=== PATIENT | female | born 1960 | race Caucasian/White ===

== ENCOUNTER 2020-04-01 05:39 | Outpatient (RCR) | payer BC ==
[~2020-04-01] VITALS: Ht 157 cm; Wt 92.6 kg
[2020-04-01] MEDS ORDERED: ACHYD1T PO (10:30)
[2020-04-01] MEDS ORDERED: FURO20TA4 PO (10:30)
[2020-04-01] MEDS ORDERED: ELUX100T PO (10:30)
[2020-04-01] MEDS ORDERED: LORA10TA7 PO (10:30)
[2020-04-01] MEDS ORDERED: LEVO50TA6 PO (10:30)
[2020-04-01] MEDS ORDERED: ESTR2TAB PO (10:30)
[2020-04-01] MEDS ORDERED: LISI10TA2 PO (10:30)
[2020-04-01 10:33] VITALS: BP 126/82
[2020-04-01 10:59] LABS: BASOPHILS % (AUTO) 1 % (0-10); EOSINOPHILS # (AUTO) 0.2 10^3/uL (0.0-0.3); EOSINOPHILS % (AUTO) 3 % (0-10); HEMATOCRIT 41 % (35-52); HEMOGLOBIN 13.7 G/DL (11.5-16.0); LYMPHOCYTES # (AUTO) 1.5 X 10^3 (1.0-4.0); LYMPHOCYTES % (AUTO) 19 % (12-44); MEAN CORPUSCULAR HEMOGLOBIN 29 PG (25-34); MEAN CORPUSCULAR HGB CONC 34 G/DL (32-36); MEAN CORPUSCULAR VOLUME 87 FL (80-99); MEAN PLATELET VOLUME 9.4 FL (7.4-10.4); MONOCYTES # (AUTO) 0.6 X 10^3 (0.0-1.0); MONOCYTES % (AUTO) 8 % (0-12); NEUTROPHILS # (AUTO) 5.5 X 10^3 (1.8-7.8); NEUTROPHILS % (AUTO) 70 % (42-75); PLATELET COUNT 228 10^3/uL (130-400); WHITE BLOOD COUNT 7.9 10^3/uL (4.3-11.0)
[2020-04-01 11:15] LABS: BUN/CREATININE RATIO 19; CALCIUM 8.8 MG/DL (8.5-10.1); CARBON DIOXIDE 23 MMOL/L (21-32); CHLORIDE 109 MMOL/L (98-107); CREATININE SERUM 0.75 MG/DL (0.60-1.30); GFR ESTIMATED > 60; GLUCOSE 97 MG/DL (70-105); POTASSIUM 3.9 MMOL/L (3.6-5.0); SODIUM 141 MMOL/L (135-145)
--- NOTE | 2020-04-01 12:24 | Diagnostic Imaging Report ---
Clinical indication: Patient with excision left nasal lesion. No chest complaints today. Exam: Chest x-ray PA and lateral views. Comparisons: None. Findings: Lungs/pleura: Lungs are clear. There is no pneumothorax. There is no pleural effusion. Mediastinum: Unremarkable. Pulmonary vasculature: Unremarkable. Heart: Unremarkable. Bones/extrathoracic soft tissue: There are hypertrophic spurs seen throughout the thoracic and visualized upper lumbar spine. Impression: There is no radiographic evidence of acute cardiopulmonary process. Dictated by: Dictated on workstation # [id number]
== END 2020-04-01 16:00 | disposition home or self-care (01) ==
LOC: PREOP 05:39
PROVIDERS: ATTEND Otolaryngology Otolaryngology/Facial Plastic Surgery
DX: Z01.810 Encounter for preprocedural cardiovascular examination (principal); Z01.811 Encounter for preprocedural respiratory examination; Z01.812 Encounter for preprocedural laboratory examination; J34.89 Other specified disorders of nose and nasal sinuses; Z20.828 Contact with and (suspected) exposure to other viral communicable diseases; Z11.2 Encounter for screening for other bacterial diseases
CPT/HCPCS: 71046; 80048; 85025; 87081; 93005; U0002; 36415; 87635

== ENCOUNTER 2020-04-04 06:06 | Day surgery (SDC) | payer BC ==
[~2020-04-04] VITALS: Ht 157 cm; Wt 92.6 kg
[2020-04-04] VITALS (9 sets, daily range): BP systolic 109–150; BP diastolic 58–91
[~2020-04-04 06:06] MED LIST: ACHYD1T PO; ELUX100T PO; ESTR2TAB PO; FURO20TA4 PO; LEVO50TA6 PO; LISI10TA2 PO; LORA10TA7 PO
--- OUTSIDE RECORDS SUMMARY | 2020-04-04 06:11 | XMS REPORT | Continuity of Care Document ---
Author Organization Unknown Address Unknown Phone Unavailable Allergies Active Description Code Type Severity Reaction Onset Reported/Identified Relationship to Patient Clinical Status Yes No Known Drug Allergies [id number] Drug Allergy Unknown N/A 04/01/2020 Medications There is no data. Problems There is no data. Procedures There is no data. Results Test Result Range Coronavirus SARS-CoV-2 SO 2018 - 0 08:00 Coronavirus Ab [Units/volume] in Serum Negative Negative Complete blood count (CBC) with automate d white blood cell (WBC) differential - 04/01/20 10:40 Blood leukocytes automated count (number/volume) 7.9 10*3/uL 4.3-11.0 Blood erythrocytes automated count (number/volume) 4.66 10*6/uL 4.35-5.85 Venous blood hemoglobin measurement (mass/volume) 13.7 g/dL 11.5-16.0 Blood hematocrit (volume fraction) 41 % 35-52 Automated erythrocyte mean corpuscular volume 87 [ foz_us] 80-99 Automated erythrocyte mean corpuscular h emoglobin (mass per erythrocyte) 29 pg 25-34 Automated erythrocyte mean corpuscular h emoglobin concentration measurement (mass/volume) 34 g/dL 32-36 Automated erythrocyte distribution width ratio 14. 0 % 10.0- 14.5 Automated blood platelet count (count/volume) 228 10*3/uL 130-400 Automated blood platelet mean volume measurement 9.4 [foz_us] 7.4-10.4 Automated blood neutrophils/100 leukocytes 70 % 42-75 Automated blood lymphocytes/100 leukocytes 19 % 12-44 Blood monocytes/100 leukocytes 8 % 0-12 Automated blood eosinophils/100 leukocytes 3 % 0-10 Automated blood basophils/100 leukocytes 1 % 0-10 Blood neutrophils automated count (number/volume) 5.5 10*3 1.8-7.8 Blood lymphocytes automated count (number/volume) 1.5 10*3 1.0-4.0 Blood monocytes automated count (number/volume) 0. 6 10*3 0.0-1.0 Automated eosinophil count 0.2 10*3/uL 0 .0-0.3 Automated blood basophil count (count/volume) 0.0 10*3/uL 0.0-0.1 Whole blood basic metabolic panel - 03/20 12/07 10:40 Serum or plasma sodium measurement (moles/volume) 141 mmol/L 135-145 Serum or plasma potassium measurement (moles/volume) 3.9 mmol/L 3.6-5.0 Serum or plasma chloride measurement (moles/volume) 109 mmol/L 98-107 Carbon dioxide 23 mmol/L 21-32 Serum or plasma anion gap determination (moles/volume) 9 mmol/L 5-14 Serum or plasma urea nitrogen measurement (mass/volume ) 14 mg/dL 7-18 Serum or plasma creatinine measurement (mass/volume) 0.75 mg/dL 0.60-1.30 Serum or plasma urea nitrogen/creatinine mass ratio 19 NRG Serum or plasma creatinine measurement w ith calculation of estimated glomerular filtration rate > NRG Serum or plasma glucose measurement (mass/volume) 97 mg/dL 70-105 Serum or plasma calcium measurement (mass/volume) 8.8 mg/dL 8.5-10.1 Methicillin resistant Staphylococcus aur eus (MRSA) screening culture - 04/01/20 10:40 Methicillin resistant Staphylococcus aureus (MRSA) scr eening culture NEG NRG Encounters ACCT No. Visit Date/Time Discharge Status Pt. Type Provider Facility Loc./Unit Complaint [id number] 04/01/2020 05:39:00 020 16:00:00 DIS Outpatient CHYNA BROTHERS MD [facility] PREOP LEFT NASAL ALAR LESION [id number] 04/04/2020 08:15:00 P EN Preadmit CHYNA BROTHERS MD [facility] SDC LEFT NASAL ALAR LESION
[2020-04-04] MEDS ORDERED: MIDAZOLAM 2 MG/2 ML (VERSED) VIAL IV ONE (06:30)
[2020-04-04] MEDS ORDERED: LACTATED RINGERS 1,000 ML IV PRN (06:32)
[2020-04-04] MEDS ORDERED: DEXAMETHASONE 10 MG/ML (DECADRON) 1 ML VIAL ONE (06:54)
[2020-04-04] MEDS ORDERED: ONDANSETRON 4 MG/2 ML (SDV) Z0FRAN ONE (06:54)
[2020-04-04] MEDS ORDERED: proPOfol 200 MG/20 ML (DIPRIVAN) VIAL IV ONE (06:54)
[2020-04-04] MEDS ORDERED: MIDAZOLAM 2 MG/2 ML (VERSED) VIAL ONE (06:55)
[2020-04-04] MEDS ORDERED: fentaNYL INJECTION 100 MCG/2 ML AMP ONE (06:55)
[2020-04-04] MEDS ORDERED: SEVOFLURANE (ULTANE) 15 ML INHAL SOLN ONE ×2 (06:55→08:22)
[2020-04-04] MEDS ORDERED: LIDOCAINE/EPI 1%-1:100,000 (XYLOCAINE) 20ML ONE (07:02)
[2020-04-04] MEDS ORDERED: MUPIROCIN 2% OINT 22 GM (BACTROBAN) TUBE ONE (07:02)
--- NOTE | 2020-04-04 07:11 | Progress Note-Pre Operative ---
Pre-Operative Progress Note H&P Reviewed The H&P was reviewed, patient examined and no changes noted. Date Seen by Provider: Apr 04, 2020 Time Seen by Provider: 07:10 Date H&P Reviewed: Apr 04, 2020 Time H&P Reviewed: 07:10 Pre-Operative Diagnosis: Left Nasal Lesion CHYNA BROTHERS MD Apr 04, 2020 07:11
[2020-04-04] MEDS ORDERED: BSS 15 ML ONE (08:11)
--- NOTE | 2020-04-04 08:16 | Progress Note-Post Operative ---
Post-Operative Progess Note Surgeon (s)/Director Export (s) Surgeon CHYNA BROTHERS MD Director Export n/a Pre-Operative Diagnosis Left Nasal Lesion Post-Operative Diagnosis same Post-Op Procedure Note Date of Procedure: Apr 04, 2020 Name of Procedure Performed: Basal Cell CArcinoma of LEft Nasal Alae, REconstruction with FTSG Donor Site-Left Pre-auricular site Description & Findings Description and Findings: n/a Anesthesia Type lma Estimated Blood Loss minimal Packing none. Specimen(s) collected/removed basal cell ca with clear margins CHYNA BROTHERS MD Apr 04, 2020 08:16
--- NOTE | 2020-04-04 08:19 | Anesthesia-General Post-Op ---
General Patient Condition Mental Status/LOC: Same as Preop Cardiovascular: Satisfactory Nausea/Vomiting: Absent Respiratory: Satisfactory Pain: Controlled Complications: Absent Post Op Complications Complications None Follow Up Care/Instructions Patient Instructions None needed. Anesthesia/Patient Condition Patient Condition Patient is doing well, no complaints, stable vital signs, no apparent adverse anesthesia problems. No complications reported per nursing. HAO DUEÑAS CRNA Apr 04, 2020 08:19
[2020-04-04] MEDS ORDERED: ACETAMINOPHEN 325 MG TABLET PO PRN (08:30)
[2020-04-04] MEDS ORDERED: ONDANSETRON 4 MG/2 ML (SDV) Z0FRAN IVP PRN (08:30)
[2020-04-04] MEDS ORDERED: MEPERIDINE (DEMEROL) INJ 50 MG/ML IVP ONE (08:30)
[2020-04-04] MEDS ORDERED: HYDROcodone/APAP 5 MG/325 MG (LORTAB) TAB PO PRN (08:30)
[2020-04-04] MEDS ORDERED: morphine INJ 10 MG/ML 1ML (SYR OR VIAL) IVP ONE (08:30)
[2020-04-04] MEDS ORDERED: morphine INJ 4 MG/ML 1 ML (VIAL/SYRINGE) ONE (08:40)
[2020-04-04] MEDS ORDERED: morphine INJ 10 MG/ML 1ML (SYR OR VIAL) ONE (08:44)
[2020-04-04] MEDS ORDERED: CEPH-507 PO (09:08)
[2020-04-04] MEDS ORDERED: HYDR-83 PO (09:08)
--- NOTE | 2020-04-04 09:24 | NUR ---
WHEN GOING OVER DC INSTRUCTIONS AND DISCUSSING MEDICATION SCRIPTS, PT STATED SHE ALREADY HAD HYDROCODONE AT HOME AND DOES NOT NEED OR WANT THE SCRIPT FROM DR BROTHERS TODAY. SCRIPT TORN UP BY DUC ROJAS RN
[2020-04-04] MEDS ORDERED: HYDROcodone/APAP 5 MG/325 MG (LORTAB) TAB ONE (10:08)
== END 2020-04-04 10:15 | disposition home or self-care (01) ==
LOC: SDC 06:06
PROVIDERS: ATTEND Otolaryngology Otolaryngology/Facial Plastic Surgery
DX: C44.311 Basal cell carcinoma of skin of nose (principal); I10 Essential (primary) hypertension; K21.0 Gastro-esophageal reflux disease with esophagitis; E03.9 Hypothyroidism, unspecified; M06.9 Rheumatoid arthritis, unspecified; Z79.899 Other long term (current) drug therapy
CPT/HCPCS: 88305; 88331

== ENCOUNTER → 2022-02-26 | Outpatient (CLI) | payer BC ==
[~2022-02-26] MED LIST changes: +ACHD5005 PO; +CEPH-507 PO; -ESTR2TAB PO; +ESTR2TAB3 PO; -LISI10TA2 PO; +LISI10TA25 PO; +RT-ALBUTEROL SULF 2.5 MG/3 ML PRE-MIX VIAL INH ONE
== END ==
LOC: RT 13:00
PROVIDERS: ATTEND Nurse Practitioner Family
DX: R05.9 Cough, unspecified (principal)
CPT/HCPCS: 94060; 94726; 94729

== ENCOUNTER → 2022-05-21 | Outpatient (CLI) | payer BC ==
[~2022-05-21] MED LIST changes: -RT-ALBUTEROL SULF 2.5 MG/3 ML PRE-MIX VIAL INH ONE
== END ==
LOC: CARDFS 14:43
PROVIDERS: ATTEND Registered Nurse Emergency
DX: R60.0 Localized edema (principal)
CPT/HCPCS: 93306

== ENCOUNTER → 2022-08-24 | Outpatient (CLI) | payer BC ==
--- NOTE | 2022-08-24 15:47 | Diagnostic Imaging Report ---
PROCEDURE: CT sinuses without contrast TECHNIQUE: Multiple contiguous axial images were obtained through the sinuses without the use of intravenous contrast. Coronal and sagittal reformations were then performed. Auto Exposure Controls were utilized during the CT exam to meet ALARA standards for radiation dose reduction. INDICATION: Chronic and recurring sinusitis. The frontal sinus is clear. Ethmoid air cells and sphenoid sinuses are clear. Bilateral maxillary sinuses are clear. Mastoids are well aerated. There is some slight nasal septal deviation to the left. Osteomeatal complexes are patent bilaterally. IMPRESSION: No evidence of sinusitis. Dictated by: Dictated on workstation # [id number]
== END ==
LOC: RAD FS 13:40
PROVIDERS: ATTEND Otolaryngology Otolaryngology/Facial Plastic Surgery
DX: J32.9 Chronic sinusitis, unspecified (principal)
CPT/HCPCS: 70486

== ENCOUNTER → 2022-08-24 | Outpatient (CLI) | payer BC ==
[~2022-08-24] MED LIST changes: +CATHETER FLUSH 10 ML SYR IV PRN; +HOLD METFORMIN - RECEIVED CONTRAST 20 ML VIAL IV SCH; +IOHEXOL 350 MG/ML 100 ML (OMNIPAQUE 350) VIAL IV ONE; +NS 100 ML (IVPB) BAG IV ONE
[2022-08-24 14:28] LABS: CREATININE SERUM 1.17 MG/DL (0.60-1.30); POTASSIUM 3.5 MMOL/L (3.6-5.0)
[2022-08-24 14:29] LABS: BILIRUBIN,TOTAL 0.3 MG/DL (0.1-1.0); CALCIUM 9.3 MG/DL (8.5-10.1)
[2022-08-24 14:30] LABS: ALBUMIN 4.1 GM/DL (3.2-4.5); TOTAL PROTEIN 7.2 GM/DL (6.4-8.2)
--- NOTE | 2022-08-24 15:48 | Diagnostic Imaging Report ---
PROCEDURE: CT abdomen with contrast only. TECHNIQUE: Multiple contiguous axial images were obtained through the abdomen after the administration of intravenous contrast. Auto Exposure Controls were utilized during the CT exam to meet ALARA standards for radiation dose reduction. INDICATION: Abnormal outside ultrasound. No prior studies are available for comparison. Lung bases are clear. No discrete liver mass is identified. There are multiple stones in the gallbladder. No biliary ductal dilatation is seen. Pancreas and spleen are unremarkable apart from probable cyst in the spleen measuring 2.2 cm. No adrenal mass is identified. Kidneys are unremarkable. No hydronephrosis is detected. Aorta is nonaneurysmal. Bowel loops are normal in caliber. There is no evidence of obstruction. No free fluid or fluid collection is seen. There is no free air. IMPRESSION: 1. Cholelithiasis. 2. Splenic cysts. 3. No other significant abnormality is identified. Dictated by: Dictated on workstation # [id number]
== END ==
LOC: RAD FS 13:44
PROVIDERS: ATTEND Nurse Practitioner Family
DX: K80.20 Calculus of gallbladder without cholecystitis without obstruction (principal); D73.4 Cyst of spleen; I10 Essential (primary) hypertension
CPT/HCPCS: 36415; 74160; 80053; Q9967

== ENCOUNTER → 2022-09-09 | Outpatient (CLI) | payer BC ==
[~2022-09-09] MED LIST changes: -CATHETER FLUSH 10 ML SYR IV PRN; -HOLD METFORMIN - RECEIVED CONTRAST 20 ML VIAL IV SCH; -IOHEXOL 350 MG/ML 100 ML (OMNIPAQUE 350) VIAL IV ONE; -NS 100 ML (IVPB) BAG IV ONE
--- NOTE | 2022-09-09 16:39 | Diagnostic Imaging Report ---
EXAMINATION: Left knee radiographs, 3 views. COMPARISON: None. HISTORY: 61-year-old female, left knee pain. FINDINGS: There is severe medial compartment joint space loss and patellofemoral compartment joint space loss. There are tricompartmental osteophytes. There is no knee joint effusion. There is mild degenerative type enthesopathy at the distal quadriceps tendon insertion. There is no identified acute fracture. IMPRESSION: Severe medial and patellofemoral compartment osteoarthritis of the left knee without knee joint effusion. Dictated by: Dictated on workstation # [id number]
== END ==
LOC: RAD FS 13:47
PROVIDERS: ATTEND Registered Nurse Emergency
DX: M17.12 Unilateral primary osteoarthritis, left knee (principal)
CPT/HCPCS: 73562

== ENCOUNTER → 2022-10-07 | Outpatient (CLI) | payer BC | LOC: ORTHO 10:33 | PROVIDERS: ATTEND Orthopaedic Surgery | DX: M17.12 Unilateral primary osteoarthritis, left knee (principal); I10 Essential (primary) hypertension; E78.5 Hyperlipidemia, unspecified; E03.9 Hypothyroidism, unspecified; C44.90 Unspecified malignant neoplasm of skin, unspecified; Z12.31 Encounter for screening mammogram for malignant neoplasm of breast; Z12.11 Encounter for screening for malignant neoplasm of colon | CPT/HCPCS: 99203 ==

== ENCOUNTER → 2022-11-19 | Outpatient (CLI) | payer BC ==
[~2022-11-19] MED LIST changes: +ASPI-1238 PO; +BUDE10.2 IH; +CELE200C PO; +CETI10TA17 PO; +CYCL10TA25 PO; +FAMO20TA3 PO; +FLUT9.9S NS; +LEVO50CA4 PO; +LOSA50TA63 PO; +MELO15TA39 PO; +MONT10TA21 PO; +OMEP40CA6 PO; +OXC5T PO; +SIMV10TA26 PO; +TIOT4MIS5 IH; +TRZ50T PO
== END ==
LOC: ORTHO 10:50
PROVIDERS: ATTEND Orthopaedic Surgery
DX: M17.12 Unilateral primary osteoarthritis, left knee (principal); I10 Essential (primary) hypertension; E78.5 Hyperlipidemia, unspecified; E03.9 Hypothyroidism, unspecified

== ENCOUNTER 2022-11-30 05:28 | Outpatient (CLI) | payer BC ==
[~2022-11-30] VITALS: Ht 154.9 cm; Wt 97.2 kg
[~2022-11-30 05:28] MED LIST changes: -ASPI-1238 PO; -BUDE10.2 IH; -CELE200C PO; -CETI10TA17 PO; -CYCL10TA25 PO; -FAMO20TA3 PO; -FLUT9.9S NS; -LEVO50CA4 PO; -LOSA50TA63 PO; -MELO15TA39 PO; -MONT10TA21 PO; -OMEP40CA6 PO; -OXC5T PO; -SIMV10TA26 PO; -TIOT4MIS5 IH; -TRZ50T PO
[2022-11-30 08:14] LABS: BILIRUBIN,URINE NEGATIVE (NEGATIVE); CLARITY,URINE CLEAR; COLOR,URINE YELLOW; GLUCOSE, URINE (UA) NEGATIVE (NEGATIVE); KETONES,URINE NEGATIVE (NEGATIVE); LEUKOCYTE ESTERASE ,URINE NEGATIVE (NEGATIVE); NITRITE,URINE NEGATIVE (NEGATIVE); PROTEIN,URINE NEGATIVE (NEGATIVE)
[2022-11-30 08:17] VITALS: BP 122/78
[2022-11-30 08:27] LABS: BACTERIA,URINE MODERATE /HPF; HYALINE CASTS, URINE RARE /LPF; RBC,URINE 0-2 /HPF; WBC,URINE 0-2 /HPF
[2022-11-30 09:01] LABS: BASOPHILS # (AUTO) 0.1 10^3/uL (0.0-0.1); BASOPHILS % (AUTO) 1 % (0-10); EOSINOPHILS # (AUTO) 0.3 10^3/uL (0.0-0.3); EOSINOPHILS % (AUTO) 5 % (0-10); HEMATOCRIT 40 % (35-52); HEMOGLOBIN 13.1 g/dL (11.5-16.0); LYMPHOCYTES # (AUTO) 1.1 10^3/uL (1.0-4.0); LYMPHOCYTES % (AUTO) 18 % (12-44); MEAN CORPUSCULAR HEMOGLOBIN 29 pg (25-34); MEAN CORPUSCULAR HGB CONC 33 g/dL (32-36); MEAN CORPUSCULAR VOLUME 89 fL (80-99); MEAN PLATELET VOLUME 9.1 fL (9.0-12.2); MONOCYTES # (AUTO) 0.6 10^3/uL (0.0-1.0); MONOCYTES % (AUTO) 9 % (0-12); NEUTROPHILS # (AUTO) 4.1 10^3/uL (1.8-7.8); NEUTROPHILS % (AUTO) 67 % (42-75); PLATELET COUNT 199 10^3/uL (130-400); WHITE BLOOD COUNT 6.2 10^3/uL (4.3-11.0)
[2022-11-30 09:18] LABS: CALCIUM 8.9 MG/DL (8.5-10.1); CREATININE SERUM 0.98 MG/DL (0.60-1.30)
[2022-11-30] MEDS ORDERED: ceFAZolin INJECTION 2,000 MG in NS (IVPB) 50 ML IV ONE (09:45)
--- NOTE | 2022-11-30 14:05 | Diagnostic Imaging Report ---
EXAMINATION: Left knee radiographs, 4 views. COMPARISON: None. HISTORY: 62-year-old female, preoperative exam prior to total knee replacement. FINDINGS: The patella is normally positioned. There is severe medial compartment joint space loss with jrjb-sr-adce articulation. There is moderate to severe patellofemoral compartment joint space loss with small patellofemoral compartment osteophytes. There is a small knee joint effusion. There is degenerative type enthesopathy at the distal quadriceps tendon insertion. There are lateral compartment osteophytes. The proximal tibia is laterally subluxed relative to the distal femur. There is no identified acute fracture. IMPRESSION: 1. Severe predominantly medial and patellofemoral compartment osteoarthritis with small knee joint effusion. 2. The proximal tibia is laterally subluxed relative to the distal femur. Dictated by: Dictated on workstation # [id number]
--- NOTE | 2022-11-30 15:44 | Diagnostic Imaging Report ---
INDICATION: Evaluation prior to left total knee replacement. TECHNIQUE: Two view chest 9:10 AM CORRELATION STUDY: 04/01/2020 FINDINGS: The heart size, mediastinal configuration and pulmonary vasculature are within normal limits. The lungs are clear with no consolidating infiltrate. There is no significant pleural effusion or pneumothorax. Moderately advanced degenerative changes thoracic spine. IMPRESSION: 1. Negative for acute abnormality of the chest. Dictated by: Dictated on workstation # [id number]
[2022-11-30] MEDS ORDERED: TRZ50T PO (16:19)
[2022-11-30] MEDS ORDERED: OMEP40CA6 PO (16:19)
[2022-11-30] MEDS ORDERED: FLUT9.9S NS (16:19)
[2022-11-30] MEDS ORDERED: BUDE10.2 IH (16:19)
[2022-11-30] MEDS ORDERED: LEVO50CA4 PO (16:19)
[2022-11-30] MEDS ORDERED: FAMO20TA3 PO (16:19)
[2022-11-30] MEDS ORDERED: SIMV10TA26 PO (16:19)
[2022-11-30] MEDS ORDERED: LOSA50TA63 PO (16:19)
[2022-11-30] MEDS ORDERED: TIOT4MIS5 IH (16:19)
[2022-11-30] MEDS ORDERED: MELO15TA39 PO (16:19)
[2022-11-30] MEDS ORDERED: MONT10TA21 PO (16:19)
[2022-11-30] MEDS ORDERED: CETI10TA17 PO (16:19)
[2022-11-30] MEDS ORDERED: CELE200C PO (16:19)
== END 2022-11-30 16:21 ==
LOC: PREOP 05:28
PROVIDERS: ATTEND Orthopaedic Surgery
DX: Z01.818 Encounter for other preprocedural examination (principal); M17.12 Unilateral primary osteoarthritis, left knee
CPT/HCPCS: 36415; 71046; 73564; 80048; 81000; 85025; 87088; 93005

== ENCOUNTER → 2022-12-01 | Outpatient (CLI) | payer BC ==
[~2022-12-01] MED LIST changes: +BUDE10.2 IH; +CELE200C PO; +CETI10TA17 PO; +FAMO20TA3 PO; +FLUT9.9S NS; +LEVO50CA4 PO; +LOSA50TA63 PO; +MELO15TA39 PO; +MONT10TA21 PO; +OMEP40CA6 PO; +SIMV10TA26 PO; +TIOT4MIS5 IH; +TRZ50T PO
[2022-12-01 15:42] LABS: BILIRUBIN,URINE NEGATIVE (NEGATIVE); CLARITY,URINE SL CLOUDY; COLOR,URINE YELLOW; GLUCOSE, URINE (UA) NEGATIVE (NEGATIVE); KETONES,URINE NEGATIVE (NEGATIVE); LEUKOCYTE ESTERASE ,URINE NEGATIVE (NEGATIVE); NITRITE,URINE NEGATIVE (NEGATIVE); PH,URINE 5.5 (5-9); PROTEIN,URINE NEGATIVE (NEGATIVE)
[2022-12-01 15:55] LABS: BACTERIA,URINE MODERATE /HPF; URINE OTHER CLUE CELLS /HPF; WBC,URINE RARE /HPF
== END ==
LOC: LAB 15:16
PROVIDERS: ATTEND Orthopaedic Surgery
DX: Z01.89 Encounter for other specified special examinations (principal)
CPT/HCPCS: 81000

== ENCOUNTER 2022-12-07 06:02 | Day surgery (SDC) | payer BC ==
[2022-12-07] VITALS (11 sets, daily range): BP systolic 125–170; BP diastolic 72–103
[~2022-12-07] VITALS: Ht 154.9 cm; Wt 97.2 kg
[~2022-12-07 06:02] MED LIST changes: +MONT-47 PO; -MONT10TA21 PO
[2022-12-07] MEDS: LACTATED RINGERS 1,000 ML IV PRN ×2 (06:25→08:00)
[2022-12-07] MEDS ORDERED: MIDAZOLAM 2 MG/2 ML (VERSED) VIAL ONE (07:00)
[2022-12-07] MEDS ORDERED: ROPIVACAINE 5MG/ML 30ML VIAL ONE (07:00)
[2022-12-07] MEDS ORDERED: LIDOCAINE PF 2% 5 ML (XYLOCAINE) VIAL ONE (07:00)
[2022-12-07] MEDS ORDERED: fentaNYL INJ 100 MCG/2 ML AMP ONE (07:01)
--- NOTE | 2022-12-07 07:22 | Progress Note-Pre Operative ---
Pre-Operative Progress Note Date of Available H&P: Nov 19, 2022 Date H&P Reviewed: Dec 07, 2022 Time H&P Reviewed: 07:10 History & Physical: H&P Reviewed, Patient Examed, No changes noted Pre-Operative Diagnosis: Left Knee Primary Osteoarthritis NAEEM LOU MD Dec 07, 2022 07:22
[2022-12-07] MEDS ORDERED: ceFAZolin INJECTION 2,000 MG ONE (07:23)
[2022-12-07] MEDS ORDERED: NS (IVPB) 50 ML ONE (07:24)
[2022-12-07] MEDS ORDERED: ceFAZolin INJECTION 2,000 MG in NS (IVPB) 50 ML IV ONE (07:30)
[2022-12-07] MEDS ORDERED: ROCURONIUM 50 MG/5 ML (ZEMURON) VIAL IV ONE (07:56)
[2022-12-07] MEDS ORDERED: proPOfol 200 MG/20 ML (DIPRIVAN) VIAL IV ONE (07:56)
[2022-12-07] MEDS ORDERED: ONDANSETRON 4 MG/2 ML (SDV) Z0FRAN ONE (07:56)
[2022-12-07] MEDS ORDERED: NEOSTIGMINE (BLOXIVERZ ) 1 MG/1ML 10 ML VIAL ONE (07:56)
[2022-12-07] MEDS ORDERED: GLYCOPYRROLATE 0.2 MG/ML (ROBINUL) 2 ML VIAL ONE (07:56)
[2022-12-07] MEDS ORDERED: TRANEXAMIC ACID 100 MG/ML 10 ML INJECTION ONE (07:57)
[2022-12-07] MEDS ORDERED: HYDROmorphone 2 MG/ML VIAL (DILAUDID) ONE (08:02)
[2022-12-07] MEDS ORDERED: SEVOFLURANE (ULTANE) 15 ML INHAL SOLN ONE (09:35)
--- NOTE | 2022-12-07 09:56 | Operative Report - Ortho ---
Operative Report Surgeon (s)/Neurological Physiotherapist (s) Surgeon NAEEM LOU MD Neurological Physiotherapist n/a Pre-Operative Diagnosis Left Knee Primary Osteoarthritis Post-Operative Diagnosis same Operative Report Date of Procedure: Dec 07, 2022 Name of Procedure Performed: Left Total Knee Arthroplasty Description & Findings After obtaining informed consent and marking the patient in the preoperative holding area, the patient did receive IV antibiotics. Patient was taken to the operating room and anesthesia was induced. Surgical timeout was taken. The left lower extremity was prepped and draped in the usual sterile fashion. Incision was made and carried down to fascia. Arthrotomy was performed on the medial side of the patella. Patella was retracted laterally and knee was flexed. Found to have circumferential osteophtye around the distal femur as well as exposed bone in the medial compartment. Hole was made in the distal femur for the intramedullary distal femoral cutting guide. Resection was made then the femur was sized as a 3. 4-in-1 block for a size [address]. Anterior cut was made and there was no notch. Posterior cut was made followed by the chamfers. Box cut was performed. Lug holes were drilled. Attention was turned to the tibial side, extramedullary tibial guide was put into place and aligned with the tibial crest. It was set to take 2 mm off of the affected medial side. Drop byron was used to confirm alignment. Resection was made and was parallel to the joint line. Tibial bone block was removed. Lamina head sugar reprocess operator was put into place and the menisci and posterior osteophytes were removed. The knee was trialed with a size 3 femur and a size 3 tibia with an 11 mm poly trial. It was found to come out to full extension and flexed beyond 120 degrees. It was stable to varus and valgus stress throughout its range of motion. This was accepted. Knee was brought out into extension and the patella was measured. It was only 20 mm thick. Osteophytes were debrided from the patella. Trial implants were removed. Tibial tray was pinned and punched. Tibial press fit guide was placed and holes were drilled. The cut bone surfaces were lavaged with pulsatile normal saline. Implants were opened and assembled on the back table. A size 3 press fit tibial component was impacted into place. Cement was applied to the end of the femur and a size 3 femoral component was impacted into place; excess cement was removed using a freer. Tibial tray was lavaged with saline. An 11 mm thick polyethylene component was locked into placed and the locking mechanism was checked. Knee was brought into extension. Betadine soak was performed and then, the knee was irrigated with normal saline. The knee was once again trialed; found to come to full extension, flexed beyond 120 degrees, and was stable to varus and valgus stress. Tourniquet was dropped and electrocautery was used for hemostasis. Fascial layer was closed with #2 Stratafix. The subcutaneous layer was closed with 2-0 Vicryl. The skin was closed with 3-0 v-loc. Wound was dressed with steri-strips, xeroform, 4x4s, ABD, webril, and DANNA wrap. Patient tolerated the procedure well and was stable to the recovery room. Anesthesia Type General Estimated Blood Loss 150 mL Specimen(s) collected/removed None NAEEM LOU MD Dec 07, 2022 09:56
[2022-12-07] MEDS ORDERED: LABETALOL HCL 20 MG/4 ML VIAL IV PRN (10:00)
[2022-12-07] MEDS ORDERED: ACETAMINOPHEN 500 MG TAB (TYLENOL) PO PRN (10:00)
[2022-12-07] MEDS ORDERED: ONDANSETRON 4 MG/2 ML (SDV) Z0FRAN IV PRN (10:00)
[2022-12-07] MEDS ORDERED: MILK OF MAGNESIA 400 MG/5 ML 30 ML UDC PO PRN (10:00)
[2022-12-07] MEDS ORDERED: BISACODYL 5 MG (DULCOLAX) TABLET PO PRN (10:00)
[2022-12-07] MEDS ORDERED: HYDROmorphone 2 MG/ML VIAL (DILAUDID) IV ONE (10:00)
[2022-12-07] MEDS ORDERED: ONDANSETRON 4 MG/2 ML (SDV) Z0FRAN IVP PRN (10:00)
[2022-12-07] MEDS ORDERED: morphine INJ 10 MG/ML 1ML (SYR OR VIAL) IVP ONE (10:00)
--- NOTE | 2022-12-07 10:38 | Diagnostic Imaging Report ---
EXAMINATION: KNEE, LEFT, 2 VIEWS (AP AND LAT). INDICATION: Postop surveillance after total knee arthroplasty. COMPARISON: None available. TECHNIQUE: Two views of the left knee. FINDINGS: Noncemented total knee arthroplasty has components in good alignment. No acute periprosthetic fracture. A small amount of soft tissue gas around the knee is expected. IMPRESSION: No complication immediately following total knee arthroplasty. Dictated by: Dictated on workstation # [id number]
[2022-12-07] MEDS: NS IV 1000 ML 1,000 ML IV SCH ×2 (11:04→12:26)
--- NOTE | 2022-12-07 13:38 | Consultation ---
CHUY SALAS 12/07/22 1338: HPI History of Present Illness: HPI/Chief Complaint This is a 62 y/o female who was admitted today for left knee replacement with Dr. Lou. She was admitted to the floor after uncomplicated surgery. She has a history of asthma, osteoarthritis, hypothyroidism, hypertension, hyperlipidemia, headaches, and GERD. She currently uses symbicort and tiotropium BID for her asthma control and her albuterol inhaler as needed. She says she has not required her PRN inhaler in a long time. She says she has occasional SOB with walking/exercise but not recently. She is currently sitting up in her reclining chair and says her pain is around 9/10, though she is hoping to get some food as she has not had anything to eat since yesterday. She endorses already passing some flatus. Has not voided yet or had a BM. She got out of bed to chair with assistance without issue. She otherwise has no complaints at this time. Her previous hospitalizations were for delivery of her children via C/S (x2), a total hysterectomy, and a wrist fracture with surgical pinning, and a previous right knee replacement. She also endorses having a basal cell carcinoma on her nose which was surgically removed. Source: patient Exam Limitations: no limitations Date Seen 12/07/22 Attending Physician Kiana Camilo MD PCP Admitting Physician: Attending Physician: Naeem Lou MD Referring Physician Mary Date of Admission 12/07/22 Home Medications & Allergies Home Medications Reviewed patient Home Medication Reconciliation performed by pharmacy medication reconciliations hvac refrigeration technician and/or nursing. Patients Allergies have been reviewed. Allergies Allergies Coded Allergies cucumber (Verified Allergy, Unknown, ABDOMINAL SWELLING, 11/30/22) doxycycline (Verified Allergy, Unknown, LETHARGIC/SYNCOPAL EPISODE, 11/30/22) green pepper (Verified Allergy, Unknown, GAS/NAUESA, 11/30/22) lisinopril (Verified Adverse Reaction, Unknown, COUGH, 11/30/22) Past Trdkgln-Hghgjm-Vweqrq Hx Patient Social History Marrital Status: Tobacco Use?: No Smoking Status: Never a Smoker Immunizations Up To Date Date of Influenza Vaccine: Jun 18, 2022 First/Initial COVID19 Vaccinat: 2020 Second COVID19 Vaccination Cal: 2020 Seasonal Allergies Seasonal Allergies: Yes Current Status Is interpretation needed?: No Past Medical History Surgeries: Section, Hysterectomy, Oophorectomy, Tubal Ligation Asthma Currently Using CPAP: No Currently Using BIPAP: No High Cholesterol, Hypertension Headaches /Migraines Sexually Transmitted Disease: No HIV/AIDS: No Gastroesophageal Reflux Arthritis, Chronic Back Pain, Fractures Hypothyroidsim Loss of Vision: Denies Hearing Impairment: Denies Skin What Type of Treatment Did You: Surgical Intervention Sleep Difficulties Blood Disorders: No Adverse Reaction/Blood Tranf: No (N/A) Review of Systems Constitutional: no symptoms reported Respiratory: see HPI Cardiovascular: no symptoms reported Gastrointestinal: no symptoms reported Genitourinary: no symptoms reported Musculoskeletal: no symptoms reported Skin: no symptoms reported Psychiatric/Neurological: No Symptoms Reported Physical Exam Physical Exam Vital Signs Vital Signs - First Documented 12/07/22 06:05 Temp 36.3 Pulse 87 Resp 20 B/P (MAP) 144/92 (109) Pulse Ox 98 O2 Delivery Room Air Capillary Refill : Less Than 3 Seconds Height, Weight, BMI Height: '" Weight: lbs. oz. kg; 40.51 BMI Method: General Appearance: No Apparent Distress HEENT: PERRL/EOMI, Normal ENT Inspection, Pharynx Normal Neck: Full Range of Motion, Non Tender, Supple Respiratory: Chest Non Tender, Lungs Clear (Upper lobes are clear.), Normal Breath Sounds, Crackles (Some coarse lower lobe crackles after patient cough during inspiration.) Cardiovascular: Regular Rate, Rhythm, No Edema, No Murmur Gastrointestinal: Normal Bowel Sounds, Non Tender, Soft Extremity: Non Tender, No Calf Tenderness, No Pedal Edema, Other (Left knee is post-surgically dressed, ice water circulating machine in place.) Skin: Normal Color, Warm/Dry Lymphatic: No Adenopathy Results Results/Procedures Labs Patient resulted labs from 11/30/22 reviewed. Imaging: Reviewed Imaging Films, Reviewed Imaging Report Imaging NAME: [facility] REC#: [id number] PT STATUS: [facility] : 1960 PHYSICIAN: NAEEM LOU MD ADMIT DATE: 12/07/22/4TH Signed Date of Exam:12/07/22 KNEE, LEFT, 2 VIEWS (AP & LAT) EXAMINATION: KNEE, LEFT, 2 VIEWS (AP AND LAT). INDICATION: Postop surveillance after total knee arthroplasty. COMPARISON: None available. TECHNIQUE: Two views of the left knee. FINDINGS: Noncemented total knee arthroplasty has components in good alignment. No acute periprosthetic fracture. A small amount of soft tissue gas around the knee is expected. IMPRESSION: No complication immediately following total knee arthroplasty. Dictated by: Dictated on workstation # [id number] Dict: 12/07/22 1036 Trans: 12/07/22 1131 [id number] Interpreted by: RASHMI ARNOLD MD Electronically signed by: RASHMI ARNOLD MD 12/07/22 1131 Assessment/Plan Assessment and Plan Assess & Plan/Chief Complaint Assessment This is a 62 y/o female who was admitted s/p lt knee replacement and is now POD#0. S/p knee replacement Osteoarthritis -Pain control per ortho -No chemical DVT prophylaxis currently ordered -SCDs -Will check labs tomorrow. -Baseline Hgb from 11/30 is 13.1. Hypothyroidism -Continue levothyroxine 50 mcg Asthma - controlled -Continue home maintenance inhalers -PRN albuterol -Montelukast, citirizine continue -Fluticasone spray, continue HTN -Continue losartan 50mg PO -Continue lasix 40mg PO Hyperlipidemia -Continue simvastatin Insomnia - unspecified -Continue at-home trazadone 50mg. GERD -Cont. prilosec and famotidine FEN/GI - Normal saline at 100 ml/hr; can reduce and DC once PO intake is adequately tolerated; currently drinking without issue, waiting on food -Replace electrolytes as needed -Regular diet -Bowel regimen ordered; PPI/H2 keyla continued from home med list DVT ppx: -SCDs now Dispo: Stable. Continue cares toward achieving post-operative milestones, PT/OT. Thank-you ortho for the consultation we will continue to follow during inpatient stay. JACKLYN GERMAIN DO 12/08/22 0452: HPI History of Present Illness: Source: patient, family Exam Limitations: no limitations Past Wosgthb-Fgzgsl-Vvmurp Hx Patient Social History Marrital Status: Employed/Student: employed Tobacco Use?: No Review of Systems Constitutional: see HPI Physical Exam Physical Exam General Appearance: No Apparent Distress, WD/WN, Chronically ill, Obese Respiratory: Lungs Clear (Upper lobes are clear.), Normal Breath Sounds Cardiovascular: Regular Rate, Rhythm Supervisory-Addendum Brief Verification & Attestation Participated in pt care: history, MDM, physical Personally performed: exam, history, MDM, supervision of care Care discussed with: Medical Student Procedures: n/a Results interpretation: Verified all documentation Verification and Attestation of Medical Student E/M Service A medical student performed and documented this service in my presence. I reviewed and verified all information documented by the medical student and made modifications to such information, when appropriate. I personally performed the physical exam and medical decision making. Jacklyn Germain, Dec 08, 2022,04:51 CHUY SALAS Dec 07, 2022 13:38 JACKLYN GERMAIN DO Dec 08, 2022 04:52
--- NOTE | 2022-12-07 14:12 | Physical Therapy Evaluation ---
PT Evaluation-General Medical Diagnosis Admission Date 12/07/22 Medical Diagnosis: Left TKA Onset Date: Dec 07, 2022 Therapy Diagnosis Therapy Diagnosis: Gait deficit Precautions Precautions/Isolations: Fall Prevention, Standard Precautions Weight Bear Status Right Lower Extremity: Right Full Weight Bearing Left Lower Extremity: Left Weight Bearing/Tolerated Referral Physician: Dr. Hernandez Reason for Referral: Evaluation/Treatment Medical History Reviewed History: Yes Social History Home: Single Level Current Living Status: Significant Other Entry Into Home: Ramp Prior Prior Level of Function SCALE: Activities may be completed with or without assistive devices. 4-Hiupspzvii-lqadysd completes the activity by him/herself with no assistance from a helper. 5-Set-up or Clean-up Assistance-helper sets up or cleans up; patient completes activity. [place] assists only prior to or following the activity. 4-Supervision or Touching Assistance-helper provides verbal cues and/or touching/steadying and/or contact guard assistance as patient completes activity. Assistance may be provided throughout the activity or intermittently. 3-Partial/Moderate Assistance-helper does LESS THAN HALF the effort. [place] lifts, holds or supports trunk or limbs, but provides less than half the effort. 2-Substantial/Maximal Assistance-helper does MORE THAN HALF the effort. [place] lifts or holds trunk or limbs and provides more than half the effort. 0-Mtcrkitay-ivzely does ALL the effort. Patient does none of the effort to complete the activity. Or, the assistance of 2 or more helpers is required for the patient to complete the activity. If activity was not attempted, code reason: 7-Patient Refused. 9-Not Applicable-not attempted and the patient did not perform the activity before the current illness, exacerbation or injury. 10-Not Attempted due to Environmental Limitations-(lack of equipment, weather restraints, etc.). 88-Not Attempted due to Medical Conditions or Safety Concerns. Bed Mobility: 6 Transfers (B,C,W/C): 6 Gait: 6 Stairs: 6 Indoor Mobility (Ambulation): Independent Stairs: Independent Has a FWW at home. PT Evaluation-Current Subjective Patient sitting in chair upon PT arrival, friend in the room, agreeable to treatment. Patient rates pain currently at 6/10 in left knee. Objective Patient Orientation: Person, Place, Time, Situation Attachments: Polar Pack, IV ROM/Strength ROM Lower Extremities Right knee WFLs all planes; left knee extension lacks 30 degrees from full extension, flexion at 80 degrees. Strength Lower Extremities Right LE 4/5 all planes; Left LE 3/5 all planes Sensory Vision: Functional Hearing: Functional Sensation Right Lower Extremit: Intact Sensation Left Lower Extremity: Intact Transfers Roll Left to Right (QC): 3 Sit to Lying (QC): 3 Lying to Sitting/Side of Bed(Q: 3 Sit to Stand (QC): 3 Chair/Gec-kn-Fwvfj Xfer(QC): 3 Gait Mode of Locomotion: Walk Anticipated Mode of Locomotion: Walk Walk 10 feet (QC): 4 Walk 50 ft with 2 Turns(QC): 3 Distance: 50 feet Gait Assistive Device: FWW Balance Sitting Static: Good Sitting Dynamic: Good Standing Static: Fair Standing Dynamic: Fair Assessment/Needs Patient tolerated treatment fair. She demonstrates significant loss of ROM and strength in left knee due to recent surgery. Patient requires CGA to Min A for all observed bed mobility and transfers. Patient ambulates 50 feet with FWW, with CGA and verbal cues for safety, progression, posture and conservation of energy. Patient in chair post treatment with all needs met, nursing notified, call light in reach and friend in room. Rehab Potential: Good PT Pelt Grader Goals Pelt Grader Goals PT Pelt Grader Goals Time Frame: Dec 18, 2022 Roll Left & Right (QC): 6 Sit to Lying (QC): 6 Lying-Sitting on Side/Bed(QC): 6 Sit to Stand (QC): 6 Chair/Ohf-ux-Ciwbx Xfer(QC): 6 Toilet Transfer (QC): 6 Walk 10 feet (QC): 5 Walk 50ft with 2 Turns (QC): 5 Walk 150 ft (QC): 5 PT Plan Problem List Problem List: Activity Tolerance, Functional Strength, Safety Treatment/Plan Treatment Plan: Continue Plan of Care Treatment Plan: Bed Mobility, Education, Functional Activity Makayla, Functional Strength, Group Therapy, Gait, Safety, Therapeutic Exercise, Transfers Treatment Duration: Dec 18, 2022 Frequency: 11 times per week Estimated Hrs Per Day: .25 hour per day Patient and/or Family Agrees t: Yes Safety Risks/Education Patient Education: Gait Training, Transfer Techniques Teaching Recipient: Patient, Family Teaching Methods: Demonstration, Discussion Response to Teaching: Verbalize Understanding, Return Demonstration Time Time In: 1332 Time Out: 1402 DATE: Dec 07, 2022 Total Billed Treatment Time: 30 Total Billed Treatment Visit, SIMRAN GUTIERREZ JOHN A PT Dec 07, 2022 14:12
[2022-12-07] MEDS: morphine INJ 4 MG/ML 1 ML (VIAL/SYRINGE) IVP PRN ×2 (14:29→20:19)
[2022-12-07] MEDS: ASPIRIN E.C. 81 MG (ECOTRIN) TAB PO SCH (17:43)
[2022-12-07] MEDS: CELECOXIB 100 MG (CeleBREX) CAP PO SCH (20:19)
[2022-12-07] MEDS: traZODone 50 MG (DESYREL) TAB PO SCH (20:19)
[2022-12-07] MEDS: DOCUSATE SODIUM 100 MG (COLACE) CAP PO SCH (20:25)
[2022-12-07] MEDS: ceFAZolin INJECTION 2,000 MG in NS (IVPB) 50 ML IV SCH (20:25)
[2022-12-07] MEDS ORDERED: LEVOTHYROXINE 50 MCG (LEVOTHROID) TAB PO SCH (21:00)
[2022-12-08] MEDS: DOCUSATE SODIUM 100 MG (COLACE) CAP PO SCH ×3 (00:05→19:27)
[2022-12-08] MEDS: morphine INJ 4 MG/ML 1 ML (VIAL/SYRINGE) IVP PRN ×3 (00:05→08:35)
[2022-12-08 04:25] VITALS: BP 118/81
--- NOTE | 2022-12-08 05:10 | Progress Note ---
Subjective Date Seen by a Provider: Dec 08, 2022 Time Seen by a Provider: 09:30 Subjective/Events-last exam Patient doing well No issues except pain Reviewed labs Wants to go home soon Review of Systems Musculoskeletal: leg pain Objective Exam Last Set of Vital Signs Vital Signs Date Time Temp Pulse Resp B/P (MAP) Pulse Ox O2 Delivery O2 Flow Rate FiO2 12/08/22 04:25 36.8 86 18 118/81 (93) 94 Room Air 12/07/22 10:15 2.00 Capillary Refill : Less Than 3 Seconds I&O Intake and Output 12/08/22 00:00 Intake Total 2180 ml Output Total 960 ml Balance 1220 ml Intake Oral 1080 ml IV Total 1100 ml Output Urine Total 960 ml Daily Weight Change No General: Alert, Oriented X3, Cooperative, No Acute Distress Lungs: Clear to Auscultation, Normal Air Movement Heart: Regular Rate, Normal S1, Normal S2, No Murmurs Psych/Mental Status: Mental Status NL, Mood NL Assessment/Plan Assessment/Plan Assess & Plan/Chief Complaint Assessment This is a 62 y/o female who was admitted s/p lt knee replacement and is now POD#0. S/p knee replacement Osteoarthritis -Pain control per ortho -No chemical DVT prophylaxis currently ordered -SCDs -Will check labs tomorrow. -Baseline Hgb from 11/30 is 13.1. Hypothyroidism -Continue levothyroxine 50 mcg Asthma - controlled -Continue home maintenance inhalers -PRN albuterol -Montelukast, citirizine continue -Fluticasone spray, continue HTN -Continue losartan 50mg PO -Continue lasix 40mg PO Hyperlipidemia -Continue simvastatin Insomnia - unspecified -Continue at-home trazadone 50mg. GERD -Cont. prilosec and famotidine FEN/GI - Normal saline at 100 ml/hr; can reduce and DC once PO intake is adequately tolerated; currently drinking without issue, waiting on food -Replace electrolytes as needed -Regular diet -Bowel regimen ordered; PPI/H2 keyla continued from home med list DVT ppx: -SCDs now Dispo: Stable. Continue cares toward achieving post-operative milestones, PT/OT. Thank-you ortho for the consultation we will continue to follow during inpatient stay. TERESA GERMAIN DO Dec 08, 2022 05:10
[2022-12-08] MEDS: ceFAZolin INJECTION 2,000 MG in NS (IVPB) 50 ML IV SCH (05:54)
[2022-12-08] MEDS: MULTIVIT W/MINERALS TAB (THERAGRAN M) PO SCH (05:54)
[2022-12-08] MEDS: LEVOTHYROXINE 50 MCG (LEVOTHROID) TAB PO SCH (05:54)
[2022-12-08 06:11] LABS: BASOPHILS % (AUTO) 0 % (0-10); EOSINOPHILS % (AUTO) 0 % (0-10); HEMATOCRIT 38 % (35-52); HEMOGLOBIN 12.3 g/dL (11.5-16.0); LYMPHOCYTES % (AUTO) 7 % (12-44); MEAN CORPUSCULAR HEMOGLOBIN 29 pg (25-34); MEAN CORPUSCULAR HGB CONC 33 g/dL (32-36); MEAN CORPUSCULAR VOLUME 89 fL (80-99); MEAN PLATELET VOLUME 9.1 fL (9.0-12.2); MONOCYTES # (AUTO) 1.1 10^3/uL (0.0-1.0); MONOCYTES % (AUTO) 8 % (0-12); NEUTROPHILS # (AUTO) 12.2 10^3/uL (1.8-7.8); NEUTROPHILS % (AUTO) 85 % (42-75); PLATELET COUNT 220 10^3/uL (130-400); WHITE BLOOD COUNT 14.5 10^3/uL (4.3-11.0)
[2022-12-08 06:28] LABS: ALBUMIN 3.5 GM/DL (3.2-4.5); BILIRUBIN,TOTAL 0.4 MG/DL (0.1-1.0); CALCIUM 8.8 MG/DL (8.5-10.1); CREATININE SERUM 1.05 MG/DL (0.60-1.30); POTASSIUM 4.3 MMOL/L (3.6-5.0); TOTAL PROTEIN 6.4 GM/DL (6.4-8.2)
[2022-12-08] MEDS: UMECLIDINIUM BROMIDE (INCRUSE ELLIPTA) 7'S IH SCH ×2 (07:15→21:09)
[2022-12-08 07:50] VITALS: BP 138/65
[2022-12-08] MEDS: FUROSEMIDE 20 MG (LASIX) TAB PO SCH (08:34)
[2022-12-08] MEDS: LOSARTAN 50 MG (COZAAR) TAB PO SCH (08:34)
[2022-12-08] MEDS: CELECOXIB 100 MG (CeleBREX) CAP PO SCH ×2 (08:34→19:27)
[2022-12-08] MEDS: ASPIRIN E.C. 81 MG (ECOTRIN) TAB PO SCH ×2 (08:34→15:57)
[2022-12-08] MEDS: PANTOPRAZOLE 40 MG (PROTONIX) TAB PO SCH (08:34)
[2022-12-08] MEDS: AtorvaSTATin TABLET 10 MG TABLET PO SCH (08:35)
[2022-12-08] MEDS: MONTELUKAST 10 MG (SINGULAIR) TAB PO SCH (08:35)
[2022-12-08] MEDS ORDERED: NON-FORMULARY MEDICATION 1 EA EA (Levothyroxine Sodium (Levothyroxine) 50 MCG) PO SCH (09:00)
[2022-12-08] MEDS ORDERED: NON-FORMULARY MEDICATION 1 EA EA (Omeprazole 40 MG) PO SCH (09:00)
[2022-12-08] MEDS ORDERED: NON-FORMULARY MEDICATION 1 EA EA (Simvastatin 10 MG) PO SCH (09:00)
--- NOTE | 2022-12-08 09:38 | Anesthesia-General Post-Op ---
General Patient Condition Mental Status/LOC: Same as Preop Cardiovascular: Satisfactory Nausea/Vomiting: Absent Respiratory: Satisfactory Pain: Controlled Complications: Absent Post Op Complications Complications None Follow Up Care/Instructions Patient Instructions None needed. Anesthesia/Patient Condition Patient Condition Patient is sitting in the chair and doing well, no complaints, stable vital signs, no apparent adverse anesthesia problems. No complications reported per nursing. JUMA BRADY DO Dec 08, 2022 09:38
[2022-12-08] MEDS ORDERED: CYCLOBENZAPRINE 10 MG (FLEXERIL) TAB PO PRN (10:15)
--- NOTE | 2022-12-08 10:15 | Progress Note - Ortho ---
Progress Note Subjective Date of Exam 12/08/22 Chief Complaint POD #1 L TKA HPI/Events since last exam some difficulty with pain control, has been up in room Review of Systems - Allergies: Coded Allergies: cucumber (Verified Allergy, Unknown, ABDOMINAL SWELLING, 11/30/22) doxycycline (Verified Allergy, Unknown, LETHARGIC/SYNCOPAL EPISODE, 11/30/22) green pepper (Verified Allergy, Unknown, GAS/NAUESA, 11/30/22) lisinopril (Verified Adverse Reaction, Unknown, COUGH, 11/30/22) Home Meds Reported Medications Celecoxib (Celebrex) 200 Mg Capsule, 200 MG PO DAILY, CAP 11/30/22 Tiotropium [place] (Spiriva Respimat 1.25MCG/ACTUATION) 1.25 Mcg/Actuation Mist.inhal, 2 PUFF IH DAILY, EA 11/30/22 Budesonide/Formoterol Fumarate (Symbicort 160-4.5 Mcg Inhaler) Unknown Strength Hfa.aer.ad, IH DAILY, EA 11/30/22 Trazodone HCl (Trazodone HCl) 50 Mg Tablet, 50 MG PO HS, TAB 11/30/22 Famotidine (Acid Plate Take Out Worker (FAMOTIDINE)) 20 Mg Tablet, 40 MG PO DAILY, TAB 11/30/22 Montelukast Sodium (Singulair) 10 Mg Tablet, 10 MG PO DAILY, TAB 11/30/22 Losartan Potassium (Losartan Potassium) 50 Mg Tablet, 50 MG PO DAILY, TAB 11/30/22 Simvastatin (Simvastatin) 10 Mg Tablet, 10 MG PO DAILY, TAB 11/30/22 Meloxicam (Meloxicam) 15 Mg Tablet, 15 MG PO UD, TAB 11/30/22 Levothyroxine Sodium (Levothyroxine) 50 Mcg Capsule, 50 MCG PO DAILY, CAP 11/30/22 Omeprazole (Omeprazole) 40 Mg Capsule.dr, 40 MG PO DAILY, CAP 11/30/22 Cetirizine HCl (Cetirizine HCl) 10 Mg Tablet, 10 MG PO DAILY, TAB 11/30/22 Fluticasone Propionate (Flonase Allergy Relief) 50 Mcg/Actuation [place].susp, 2 SPRAY NS DAILY, #1 EACH 2 SPRAYS PER NOSTRIL DAILY X 2 DAYS THEN 1 SPRAY DAILY 11/30/22 Levothyroxine Sodium (Levothyroxine Sodium) 50 Mcg Tablet, 50 MCG PO HS, TAB 04/01/20 Furosemide (Furosemide) 20 Mg Tablet, 40 MG PO DAILY, TAB 04/01/20 Objective Exam L Knee: Dressing C/D/I, +DF of ankle, no s/s of DVT Vital Signs Vital Signs Date Time Temp Pulse Resp B/P (MAP) Pulse Ox O2 Delivery O2 Flow Rate FiO2 12/08/22 07:50 36.9 94 18 138/65 (89) 93 Room Air 12/08/22 07:16 92 Room Air 12/08/22 04:25 36.8 86 18 118/81 (93) 94 Room Air 12/07/22 23:03 36.4 100 18 154/79 (104) 95 Room Air 12/07/22 20:19 Room Air 12/07/22 19:55 37.2 92 18 135/72 (93) 95 Room Air 12/07/22 15:42 37.0 98 18 132/77 (95) 94 Room Air 12/07/22 12:20 36.6 103 18 160/80 (106) 93 Room Air 12/07/22 10:45 Room Air 12/07/22 10:40 36.3 20 146/89 (108) 96 Room Air 12/07/22 10:30 20 94 Room Air 12/07/22 10:30 Room Air 12/07/22 10:20 20 142/97 (112) 98 Room Air 12/07/22 10:15 OxyMask 2.00 I & O 12/08/22 07:00 Intake Total 2430 ml Output Total 1560 ml Balance 870 ml Lab Results Laboratory Tests 12/08/22 05:56: White Blood Count 14.5H, Red Blood Count 4.25, Hemoglobin 12.3, Hematocrit 38, Mean Corpuscular Volume 89, Mean Corpuscular Hemoglobin 29, Mean Corpuscular Hemoglobin Concent 33, Red Cell Distribution Width 14.5, Platelet Count 220, Mean Platelet Volume 9.1, Immature Granulocyte % (Auto) 1, Neutrophils (%) (Auto) 85H, Lymphocytes (%) (Auto) 7L, Monocytes (%) (Auto) 8, Eosinophils (%) (Auto) 0, Basophils (%) (Auto) 0, Neutrophils # (Auto) 12.2H, Lymphocytes # (Auto) 1.0, Monocytes # (Auto) 1.1H, Eosinophils # (Auto) 0.0, Basophils # (Auto) 0.0, Immature Granulocyte # (Auto) 0.1, Sodium Level 141, Potassium Level 4.3, Chloride Level 106, Carbon Dioxide Level 26, Anion Gap 9, Blood Urea Nitrogen 16, Creatinine 1.05, Estimat Glomerular Filtration Rate 60, BUN/Creatinine Ratio 15, Glucose Level 152H, Calcium Level 8.8, Corrected Calcium 9.2, Total Bilirubin 0.4, Aspartate Amino Transf (AST/SGOT) 23, Alanine Aminotransferase (ALT/SGPT) 22, Alkaline Phosphatase 80, Total Protein 6.4, Albumin 3.5 Microbiology 12/07/22 MRSA Screen - Final, Complete Imaging 2 views of the left knee dated 12/07/22 were reviewed from PACS and demonstrated prior total knee arthroplasty with components in good position, no complicating feature Assessment and Plan Assessment Left Knee Primary Osteoarthritis s/p TKA Problem List Left Knee Primary Osteoarthritis s/p TKA Plan PT/OT DVT Prophylaxis Plan for home with home health tomorrow Final Diagonsis Left Knee Primary Osteoarthritis s/p TKA Level of the visit: Level 3 (global postop) NAEEM LOU MD Dec 08, 2022 10:15
--- NOTE | 2022-12-08 10:15 | Physical Therapy Daily Note ---
PT Daily Note-Current Subjective Patient agrees to PT. Pain Numeric Pain Scale: 8 Location: Left Location Body Site: Knee Pain Description: Acute Comment: meds issued Section J - Health Conditions 1. Rarely or not at all 2. Occasionally 3. Frequently 4. Almost constantly 8. Unable to answer Pain Effect on Sleep: 3 Pain Interference with Therapy: 3 Pain Interference w/Day-to-Day: 3 Mental Status Patient Orientation: Normal For Age Transfers SCALE: Activities may be completed with or without assistive devices. 3-Vpkmjzcuzj-fqrjzem completes the activity by him/herself with no assistance from a helper. 5-Set-up or Clean-up Assistance-helper sets up or cleans up; patient completes activity. [place] assists only prior to or following the activity. 4-Supervision or Touching Assistance-helper provides verbal cues and/or touchin g/steadying and/or contact guard assistance as patient completes activity. Assistance may be provided throughout the activity or intermittently. 3-Partial/Moderate Assistance-helper does LESS THAN HALF the effort. [place] lifts, holds or supports trunk or limbs, but provides less than half the effort. 2-Substantial/Maximal Assistance-helper does MORE THAN HALF the effort. [place] lifts or holds trunk or limbs and provides more than half the effort. 7-Sgqnozuqq-jnnyue does ALL the effort. Patient does none of the effort to complete the activity. Or, the assistance of 2 or more helpers is required for the patient to complete the activity. If activity was not attempted, code reason: 7-Patient Refused. 9-Not Applicable-not attempted and the patient did not perform the activity before the current illness, exacerbation or injury. 10-Not Attempted due to Environmental Limitations-(lack of equipment, weather restraints, etc.). 88-Not Attempted due to Medical Conditions or Safety Concerns. Sit to Stand (QC): 5 Toilet Transfer (QC): 5 Weight Bearing Right Lower Extremity: Right Full Weight Bearing Left Lower Extremity: Left Weight Bearing/Tolerated Gait Training Distance: 225' Walk 10 feet (QC): 5 Walk 50 ft with 2 Turns(QC): 5 Walk 150 ft (QC): 5 Gait Assistive Device: FWW slow, antalgic gait sequence Exercises Supine Ex: Ankle pumps, Quad Set, Heel Slides, Straight leg raise Supine Reps: 15 (in recliner AAROM left LE) Seated Therapy Exercises: Long arc quads Seated Reps: 15 (AAROM left LE) Assessment Patient progressing with treatment plan and remains up in recliner. All exercises performed in recliner with bilateral LE elevated. PT to increase activity as tolerated by patient. Patient is tearful during session due to left knee pain. Education with patient on importance of activity to improve pain and mobility. Patient voices understanding. PT Tool Or Die Drawing Checker Goals Tool Or Die Drawing Checker Goals PT Fdc Goals Time Frame: Dec 18, 2022 Roll Left & Right (QC): 6 Sit to Lying (QC): 6 Lying-Sitting on Side/Bed(QC): 6 Sit to Stand (QC): 6 Chair/Bkq-zs-Swxki Xfer(QC): 6 Toilet Transfer (QC): 6 Walk 10 feet (QC): 5 Walk 50ft with 2 Turns (QC): 5 Walk 150 ft (QC): 5 PT Plan Treatment/Plan Treatment Plan: Continue Plan of Care Treatment Plan: Bed Mobility, Education, Functional Activity Makayla, Functional Strength, Group Therapy, Gait, Safety, Therapeutic Exercise, Transfers Treatment Duration: Dec 18, 2022 Frequency: 11 times per week Estimated Hrs Per Day: .25 hour per day Patient and/or Family Agrees t: Yes Time Time In: 833 Time Out: 900 DATE: Dec 08, 2022 Total Billed Treatment Time: 27 Total Billed Treatment 1 visit EX 12 min GT 15 min SHERI RAMSEY PT Dec 08, 2022 10:15
[2022-12-08 11:09] VITALS: BP 117/69
--- NOTE | 2022-12-08 14:36 | Physical Therapy Daily Note ---
PT Daily Note-Current Subjective Patient agrees to PT. Pain Numeric Pain Scale: 8 Location: Left Location Body Site: Knee Pain Description: Acute Section J - Health Conditions 1. Rarely or not at all 2. Occasionally 3. Frequently 4. Almost constantly 8. Unable to answer Pain Effect on Sleep: 3 Pain Interference with Therapy: 3 Pain Interference w/Day-to-Day: 3 Mental Status Patient Orientation: Normal For Age Transfers SCALE: Activities may be completed with or without assistive devices. 9-Ipkiygdxen-vtknxkr completes the activity by him/herself with no assistance from a helper. 5-Set-up or Clean-up Assistance-helper sets up or cleans up; patient completes activity. [place] assists only prior to or following the activity. 4-Supervision or Touching Assistance-helper provides verbal cues and/or touching/steadying and/or contact guard assistance as patient completes activity. Assistance may be provided throughout the activity or intermittently. 3-Partial/Moderate Assistance-helper does LESS THAN HALF the effort. [place] lifts, holds or supports trunk or limbs, but provides less than half the effort. 2-Substantial/Maximal Assistance-helper does MORE THAN HALF the effort. [place] lifts or holds trunk or limbs and provides more than half the effort. 7-Xehfcsnux-saaunl does ALL the effort. Patient does none of the effort to complete the activity. Or, the assistance of 2 or more helpers is required for the patient to complete the activity. If activity was not attempted, code reason: 7-Patient Refused. 9-Not Applicable-not attempted and the patient did not perform the activity before the current illness, exacerbation or injury. 10-Not Attempted due to Environmental Limitations-(lack of equipment, weather restraints, etc.). 88-Not Attempted due to Medical Conditions or Safety Concerns. Sit to Lying (QC): 4 Sit to Stand (QC): 4 Chair/Hen-fn-Bxccd Xfer(QC): 4 Weight Bearing Right Lower Extremity: Right Full Weight Bearing Left Lower Extremity: Left Weight Bearing/Tolerated Gait Training Distance: 200' Walk 10 feet (QC): 5 Walk 50 ft with 2 Turns(QC): 5 Walk 150 ft (QC): 5 Gait Assistive Device: FWW slow, step to, antalgic Exercises Supine Ex: Ankle pumps, Quad Set, Heel Slides, Straight leg raise Supine Reps: 12 (AAROM left LE) Seated Therapy Exercises: Long arc quads Seated Reps: 15 (AAROM left LE) Assessment Patient resists all left knee flexion and extension due to pain (pain medication issued per RN). PT educated patient on importance of actively performing exercises and "working through the pain" to receive the full benefit of the elective surgery. Patient voices understanding, however, continues to resist due to pain. Patient is in bed after treatment with polar pack on left knee. Increase activity as tolerated by patient. PT [facility] Goals Program Director Air Talent Goals PT [facility] Goals Time Frame: Dec 18, 2022 Roll Left & Right (QC): 6 Sit to Lying (QC): 6 Lying-Sitting on Side/Bed(QC): 6 Sit to Stand (QC): 6 Chair/Dbh-jd-Eqxwn Xfer(QC): 6 Toilet Transfer (QC): 6 Walk 10 feet (QC): 5 Walk 50ft with 2 Turns (QC): 5 Walk 150 ft (QC): 5 PT Plan Treatment/Plan Treatment Plan: Continue Plan of Care Treatment Plan: Bed Mobility, Education, Functional Activity Makayla, Functional Strength, Group Therapy, Gait, Safety, Therapeutic Exercise, Transfers Treatment Duration: Dec 18, 2022 Frequency: 11 times per week Estimated Hrs Per Day: .25 hour per day Patient and/or Family Agrees t: Yes Time Time In: 1410 Time Out: 1433 DATE: Dec 08, 2022 Total Billed Treatment Time: 23 Total Billed Treatment 1 visit EX 15 min GT 8 min SHERI RAMSEY PT Dec 08, 2022 14:36
[2022-12-08 16:13] VITALS: BP 143/68
[2022-12-08] MEDS: traZODone 50 MG (DESYREL) TAB PO SCH (19:27)
[2022-12-08] MEDS: BACITRACIN OINTMENT 28 GM TUBE TOP SCH (19:27)
[2022-12-08 19:28] VITALS: BP 137/67
[2022-12-08 23:07] VITALS: BP 131/63
[2022-12-09 03:52] VITALS: BP 113/78
[2022-12-09] MEDS: MULTIVIT W/MINERALS TAB (THERAGRAN M) PO SCH (06:14)
[2022-12-09] MEDS: LEVOTHYROXINE 50 MCG (LEVOTHROID) TAB PO SCH (06:14)
[2022-12-09 06:19] LABS: BASOPHILS # (AUTO) 0.1 10^3/uL (0.0-0.1); BASOPHILS % (AUTO) 1 % (0-10); EOSINOPHILS # (AUTO) 0.2 10^3/uL (0.0-0.3); EOSINOPHILS % (AUTO) 3 % (0-10); HEMATOCRIT 34 % (35-52); HEMOGLOBIN 11.2 g/dL (11.5-16.0); LYMPHOCYTES % (AUTO) 13 % (12-44); MEAN CORPUSCULAR HEMOGLOBIN 29 pg (25-34); MEAN CORPUSCULAR HGB CONC 33 g/dL (32-36); MEAN CORPUSCULAR VOLUME 89 fL (80-99); MEAN PLATELET VOLUME 9.7 fL (9.0-12.2); MONOCYTES # (AUTO) 0.9 10^3/uL (0.0-1.0); MONOCYTES % (AUTO) 12 % (0-12); NEUTROPHILS # (AUTO) 5.6 10^3/uL (1.8-7.8); NEUTROPHILS % (AUTO) 71 % (42-75); PLATELET COUNT 165 10^3/uL (130-400); WHITE BLOOD COUNT 7.9 10^3/uL (4.3-11.0)
[2022-12-09 06:35] LABS: ALBUMIN 3.3 GM/DL (3.2-4.5)
[2022-12-09 06:37] LABS: CALCIUM 8.5 MG/DL (8.5-10.1)
[2022-12-09 06:38] LABS: TOTAL PROTEIN 5.9 GM/DL (6.4-8.2)
[2022-12-09 06:40] LABS: BILIRUBIN,TOTAL 0.4 MG/DL (0.1-1.0)
[2022-12-09 06:42] LABS: CREATININE SERUM 0.97 MG/DL (0.60-1.30)
--- NOTE | 2022-12-09 07:20 | Progress Note ---
Subjective Date Seen by a Provider: Dec 09, 2022 Time Seen by a Provider: 10:00 Subjective/Events-last exam Improved overall No pain unless she walks Eating well No BM yet Home meds maintained Review of Systems General: Fatigue, Malaise Musculoskeletal: leg pain Objective Exam Last Set of Vital Signs Vital Signs Date Time Temp Pulse Resp B/P (MAP) Pulse Ox O2 Delivery O2 Flow Rate FiO2 12/09/22 03:52 36.0 92 20 113/78 (90) 92 Room Air 0.00 0.00 Capillary Refill : Less Than 3 Seconds I&O Intake and Output 12/09/22 00:00 Intake Total 1772 ml Output Total 1850 ml Balance -78 ml Intake Oral 1722 ml IV Total 50 ml Output Urine Total 1850 ml # Voids 2 General: Alert, Oriented X3, Cooperative, No Acute Distress Lungs: Clear to Auscultation, Normal Air Movement Heart: Regular Rate, Normal S1, Normal S2, No Murmurs Psych/Mental Status: Mental Status NL, Mood NL Results Lab Laboratory Tests 12/09/22 05:57: White Blood Count 7.9, Red Blood Count 3.84, Hemoglobin 11.2L, Hematocrit 34L, Mean Corpuscular Volume 89, Mean Corpuscular Hemoglobin 29, Mean Corpuscular Hemoglobin Concent 33, Red Cell Distribution Width 15.0H, Platelet Count 165, Mean Platelet Volume 9.7, Immature Granulocyte % (Auto) 1, Neutrophils (%) (Auto) 71, Lymphocytes (%) (Auto) 13, Monocytes (%) (Auto) 12, Eosinophils (%) (Auto) 3, Basophils (%) (Auto) 1, Neutrophils # (Auto) 5.6, Lymphocytes # (Auto) 1.0, Monocytes # (Auto) 0.9, Eosinophils # (Auto) 0.2, Basophils # (Auto) 0.1, Immature Granulocyte # (Auto) 0.1, Sodium Level 142, Potassium Level 4.0, Chloride Level 105, Carbon Dioxide Level 29, Anion Gap 8, Blood Urea Nitrogen 18, Creatinine 0.97, Estimat Glomerular Filtration Rate 66, BUN/Creatinine Ratio 19, Glucose Level 114H, Calcium Level 8.5, Corrected Calcium 9.1, Total Bilirubin 0.4, Aspartate Amino Transf (AST/SGOT) 16, Alanine Aminotransferase (ALT/SGPT) 16, Alkaline Phosphatase 77, Total Protein 5.9L, Albumin 3.3 Microbiology 12/07/22 MRSA Screen - Final, Complete Assessment/Plan Assessment/Plan Assess & Plan/Chief Complaint Assessment This is a 62 y/o female who was admitted s/p lt knee replacement S/p knee replacement Osteoarthritis -Pain control per ortho -No chemical DVT prophylaxis currently ordered -SCDs -Will check labs tomorrow. -Baseline Hgb from 11/30 is 13.1. Hypothyroidism -Continue levothyroxine 50 mcg Asthma - controlled -Continue home maintenance inhalers -PRN albuterol -Montelukast, citirizine continue -Fluticasone spray, continue HTN -Continue losartan 50mg PO -Continue lasix 40mg PO Hyperlipidemia -Continue simvastatin Insomnia - unspecified -Continue at-home trazadone 50mg. GERD -Cont. prilosec and famotidine FEN/GI - Normal saline at 100 ml/hr; can reduce and DC once PO intake is adequately tolerated; currently drinking without issue, waiting on food -Replace electrolytes as needed -Regular diet -Bowel regimen ordered; PPI/H2 keyla continued from home med list DVT ppx: -SCDs now Dispo: Stable. Continue cares toward achieving post-operative milestones, PT/OT. Thank-you ortho for the consultation we will continue to follow during inpatient stay. TERESA GERMAIN DO Dec 09, 2022 07:20
[2022-12-09] MEDS: UMECLIDINIUM BROMIDE (INCRUSE ELLIPTA) 7'S IH SCH (07:39)
[2022-12-09 08:00] VITALS: BP 138/57
[2022-12-09] MEDS: LOSARTAN 50 MG (COZAAR) TAB PO SCH (08:33)
[2022-12-09] MEDS: DOCUSATE SODIUM 100 MG (COLACE) CAP PO SCH (08:33)
[2022-12-09] MEDS: AtorvaSTATin TABLET 10 MG TABLET PO SCH (08:33)
[2022-12-09] MEDS: ASPIRIN E.C. 81 MG (ECOTRIN) TAB PO SCH (08:33)
[2022-12-09] MEDS: MONTELUKAST 10 MG (SINGULAIR) TAB PO SCH (08:33)
[2022-12-09] MEDS: FUROSEMIDE 20 MG (LASIX) TAB PO SCH (08:33)
[2022-12-09] MEDS: CELECOXIB 100 MG (CeleBREX) CAP PO SCH (08:33)
[2022-12-09] MEDS: PANTOPRAZOLE 40 MG (PROTONIX) TAB PO SCH (08:37)
[2022-12-09] MEDS: BACITRACIN OINTMENT 28 GM TUBE TOP SCH (08:56)
--- NOTE | 2022-12-09 09:39 | Physical Therapy Daily Note ---
PT Daily Note-Current Subjective Patient sitting in chair upon PT arrival, agreeable to treatment. Rates pain at 8/10 currently. Nurse notified. Pain Section J - Health Conditions 1. Rarely or not at all 2. Occasionally 3. Frequently 4. Almost constantly 8. Unable to answer Pain Effect on Sleep: 3 Pain Interference with Therapy: 3 Pain Interference w/Day-to-Day: 3 Mental Status Patient Orientation: Person, Place, Time, Situation Transfers SCALE: Activities may be completed with or without assistive devices. 4-Cezynvbvyb-jlhxynl completes the activity by him/herself with no assistance from a helper. 5-Set-up or Clean-up Assistance-helper sets up or cleans up; patient completes activity. [place] assists only prior to or following the activity. 4-Supervision or Touching Assistance-helper provides verbal cues and/or touc geovanna/steadying and/or contact guard assistance as patient completes activity. Assistance may be provided throughout the activity or intermittently. 3-Partial/Moderate Assistance-helper does LESS THAN HALF the effort. [place] lifts, holds or supports trunk or limbs, but provides less than half the effort. 2-Substantial/Maximal Assistance-helper does MORE THAN HALF the effort. [place] lifts or holds trunk or limbs and provides more than half the effort. 4-Kewdamohg-pznbbk does ALL the effort. Patient does none of the effort to complete the activity. Or, the assistance of 2 or more helpers is required for the patient to complete the activity. If activity was not attempted, code reason: 7-Patient Refused. 9-Not Applicable-not attempted and the patient did not perform the activity before the current illness, exacerbation or injury. 10-Not Attempted due to Environmental Limitations-(lack of equipment, weather restraints, etc.). 88-Not Attempted due to Medical Conditions or Safety Concerns. Sit to Stand (QC): 4 Chair/Jvo-bb-Nwwsm Xfer(QC): 4 Toilet Transfer (QC): 4 Weight Bearing Right Lower Extremity: Right Full Weight Bearing Left Lower Extremity: Left Weight Bearing/Tolerated Gait Training Does the Patient Walk?: Yes Distance: 200 feet Walk 10 feet (QC): 4 Walk 50 ft with 2 Turns(QC): 4 Walk 150 ft (QC): 4 Gait Persons Needed: 1 Gait Assistive Device: FWW Exercises Supine Ex: Ankle pumps, Quad Set, Glut sets Supine Reps: 20 Assessment Current Status: Poor Progress Patient reports increased pain in the left knee upon PT arrival. Patient performs all therapeutic exercises with foot elevated on recliner. She requires SBA for all observed transfers. Patient ambulates 200 feet with FWW, SBA and verbal cues for safety, to avoid objects, posture and for encouragement. Patient in chair post treatment with all needs met, nursing notified, call light in hand, ice to left knee. PT Alf Goals Alf Goals PT Electric Lift Truck Driver Goals Time Frame: Dec 18, 2022 Roll Left & Right (QC): 6 Sit to Lying (QC): 6 Lying-Sitting on Side/Bed(QC): 6 Sit to Stand (QC): 6 Chair/Cgl-yd-Zssih Xfer(QC): 6 Toilet Transfer (QC): 6 Walk 10 feet (QC): 5 Walk 50ft with 2 Turns (QC): 5 Walk 150 ft (QC): 5 PT Plan Treatment/Plan Treatment Plan: Continue Plan of Care Treatment Plan: Bed Mobility, Education, Functional Activity Makayla, Functional Strength, Group Therapy, Gait, Safety, Therapeutic Exercise, Transfers Treatment Duration: Dec 18, 2022 Frequency: 11 times per week Estimated Hrs Per Day: .25 hour per day Patient and/or Family Agrees t: Yes Safety Risks/Education Patient Education: Gait Training, Transfer Techniques Teaching Recipient: Patient Teaching Methods: Demonstration, Discussion Response to Teaching: Verbalize Understanding, Return Demonstration Time Time In: 828 Time Out: 854 DATE: Dec 09, 2022 Total Billed Treatment Time: 26 Total Billed Treatment Visit, Gait, Ex MARCIO BETANCOURT PT Dec 09, 2022 09:39
[2022-12-09] MEDS ORDERED: ASPI-1238 PO (10:30)
[2022-12-09] MEDS ORDERED: OXC5T PO (10:30)
[2022-12-09] MEDS ORDERED: CYCL10TA25 PO (10:30)
--- NOTE | 2022-12-09 10:33 | D/C HH Face to Face Order ---
D/C Face to Face Orders Instructions for Patient Via [facility], Patient Instructions/FollowUp: WBAT on left leg with walker. Dry dressing daily. Home physical therapy for ROM/strengthening/gait training. F/U with Dr. Sunil Hernandez in 2 weeks. Physician to follow Patient: Sunil Hernandez Discharge Diet for Home: No Restrictions Patient Data-Allergies,Ht & Wt Patient Allergies: Coded Allergies: cucumber (Verified Allergy, Unknown, ABDOMINAL SWELLING, 11/30/22) doxycycline (Verified Allergy, Unknown, LETHARGIC/SYNCOPAL EPISODE, 11/30/22) green pepper (Verified Allergy, Unknown, GAS/NAUESA, 11/30/22) lisinopril (Verified Adverse Reaction, Unknown, COUGH, 11/30/22) Home Health Need/Face to Face Date of Face to Face: Dec 09, 2022 Clinical Findings: Muscle weakness, Pain with ambulation I have seen Pt zxuz-ay-ynzd: Yes Discharged To: Home Diagnosis/Conditions: Left Knee Primary Osteoarthritis s/p TKA Patient is Homebound due to: Muscle weakness, Pain w/ambulation Homebound Status Due to the above stated illness, injury or surgical procedure (medical condition or diagnosis) and associated clinical findings, the patient is homebound because of his/her inability to leave home except with aid of a supportive device and/or person AND leaving the home requires a considerable and taxing effort or is medically contraindicated. Pt req the following assistanc: Walker Home Health Nursing Orders Home Health Services Order: Physical Therapy-Evaluate & Treat Home Health Infusion Therapy Line Start Date: Dec 07, 2022 Therapy Orders Therapy Specific Orders: Gait training, Increase strength/endurance, Restore ROM Certify Stmt I certify that this patient is under my care and that I, a nurse practitioner or a physician; a purchasing assistant working with me, had a face to face encounter that - meets the physician face to face encounter requirements with this patient as dated. SUNIL HERNANDEZ MD Dec 09, 2022 10:33
--- NOTE | 2022-12-09 10:36 | Discharge Summary ---
Discharge Summary Hospital Course Hospital Course Date of Admission: 12/07/22 Admission Diagnosis : Left Knee Primary Osteoarthritis Family Physician/Provider: Padmini Beltrán Aprn Date of Discharge: 12/09/22 Discharge Diagnosis: [Left Knee Primary Osteoarthritis s/p TKA ] Hospital Course: [Patient underwent L TKA on 3 and was admitted to regular floor. On night of surgery, began mechanical DVT prophylaxis. On POD #1, began chemical DVT prophylaxis. Made progress with therapy. Pain control was optimized. Arrangements were made for home health. On POD #2, was ready for discharge home with home health. ] Labs and Pending Lab Test: Laboratory Tests 3 05:57: White Blood Count 7.9, Red Blood Count 3.84, Hemoglobin 11.2L, Hematocrit 34L, Mean Corpuscular Volume 89, Mean Corpuscular Hemoglobin 29, Mean Corpuscular Hemoglobin Concent 33, Red Cell Distribution Width 15.0H, Platelet Count 165, Mean Platelet Volume 9.7, Immature Granulocyte % (Auto) 1, Neutrophils (%) (Auto) 71, Lymphocytes (%) (Auto) 13, Monocytes (%) (Auto) 12, Eosinophils (%) (Auto) 3, Basophils (%) (Auto) 1, Neutrophils # (Auto) 5.6, Lymphocytes # (Auto) 1.0, Monocytes # (Auto) 0.9, Eosinophils # (Auto) 0.2, Basophils # (Auto) 0.1, Immature Granulocyte # (Auto) 0.1, Sodium Level 142, Potassium Level 4.0, Chloride Level 105, Carbon Dioxide Level 29, Anion Gap 8, Blood Urea Nitrogen 18, Creatinine 0.97, Estimat Glomerular Filtration Rate 66, BUN/Creatinine Ratio 19, Glucose Level 114H, Calcium Level 8.5, Corrected Calcium 9.1, Total Bilirubin 0.4, Aspartate Amino Transf (AST/SGOT) 16, Alanine Aminotransferase (ALT/SGPT) 16, Alkaline Phosphatase 77, Total Protein 5.9L, Albumin 3.3 Microbiology 12/07/22 MRSA Screen - Final, Complete Home Meds Active Oxyir Tablet (Oxycodone HCl) 5 Mg Tab 10 Mg PO Q4H PRN 7 Days Aspirin EC (Aspirin) 81 Mg Tablet.dr 81 Mg PO BID WITH MEALS 14 Days Cyclobenzaprine HCl 10 Mg Tablet 10 Mg PO TID PRN 10 Days Reported Celebrex (Celecoxib) 200 Mg Capsule 200 Mg PO DAILY Spiriva Respimat 1.25MCG/ACTUATION (Tiotropium [place]) 1.25 Mcg/Actuation Mist.inhal 2 Puff IH DAILY Symbicort 160-4.5 Mcg Inhaler (Budesonide/Formoterol Fumarate) Unknown Strength Hfa.aer.ad Unknown Dose IH DAILY Trazodone HCl 50 Mg Tablet 50 Mg PO HS Acid Basket Hand Braider (FAMOTIDINE) (Famotidine) 20 Mg Tablet 40 Mg PO DAILY Singulair (Montelukast Sodium) 10 Mg Tablet 10 Mg PO DAILY Losartan Potassium 50 Mg Tablet 50 Mg PO DAILY Simvastatin 10 Mg Tablet 10 Mg PO DAILY Meloxicam 15 Mg Tablet 15 Mg PO UD Levothyroxine (Levothyroxine Sodium) 50 Mcg Capsule 50 Mcg PO DAILY Omeprazole 40 Mg Capsule.dr 40 Mg PO DAILY Cetirizine HCl 10 Mg Tablet 10 Mg PO DAILY Flonase Allergy Relief (Fluticasone Propionate) 50 Mcg/Actuation Chauncey.susp 2 Chauncey NS DAILY 2 SPRAYS PER NOSTRIL DAILY X 2 DAYS THEN 1 SPRAY DAILY Levothyroxine Sodium 50 Mcg Tablet 50 Mcg PO HS Furosemide 20 Mg Tablet 40 Mg PO DAILY Assessment/Pt Instructions WBAT on L Leg. Dry dressing daily. Home therapy as ordered. F/U in 2 weeks. Discharge Physical Examination Vital Signs Vital Signs Date Time Temp Pulse Resp B/P (MAP) Pulse Ox O2 Delivery O2 Flow Rate FiO2 12/09/22 08:00 36.5 100 16 138/57 (84) 98 Room Air 12/09/22 03:52 0.00 0.00 Extremity: Other (Incision C/D/I, +DF of ankle, no s/s of DVT) Allergies: Coded Allergies: cucumber (Verified Allergy, Unknown, ABDOMINAL SWELLING, 11/30/22) doxycycline (Verified Allergy, Unknown, LETHARGIC/SYNCOPAL EPISODE, 11/30/22) green pepper (Verified Allergy, Unknown, GAS/NAUESA, 11/30/22) lisinopril (Verified Adverse Reaction, Unknown, COUGH, 11/30/22) Discharge Summary Date of Admission Date of Discharge NAEEM LOU MD Dec 09, 2022 10:36
--- NOTE | 2022-12-09 11:36 | Occupational Therapy Eval ---
OT Evaluation-General/PLF Medical Diagnosis Admission Date Medical Diagnosis: Left TKA Onset Date: Dec 07, 2022 Therapy Diagnosis Therapy Diagnosis: s/p LTKA Precautions Precautions/Isolations: Fall Prevention, Standard Precautions Weight Bear Status Weight Bearing Restriction: Weight Bearing/Tolerated Referral Physician: Dr. Hernandez Referral Reason: Self Care, Evaluation/Treatment Medical History Reviewed History: Yes Social History Home: Single Level Current Living Status: Significant Other Entry Into Home: Ramp ADL-Prior Level of Function SCALE: Activities may be completed with or without assistive devices. 7-Xzghzktvny-rgwzdch completes the activity by him/herself with no assistance from a helper. 5-Set-up or Clean-up Assistance-helper sets up or cleans up; patient completes activity. [place] assists only prior to or following the activity. 4-Supervision or Touching Assistance-helper provides verbal cues and/or touching/steadying and/or contact guard assistance as patient completes activity. Assistance may be provided throughout the activity or intermittently. 3-Partial/Moderate Assistance-helper does LESS THAN HALF the effort. [place] lifts, holds or supports trunk or limbs, but provides less than half the effort. 2-Substantial/Maximal Assistance-helper does MORE THAN HALF the effort. [place] lifts or holds trunk or limbs and provides more than half the effort. 0-Riklkyekf-hfwxha does ALL the effort. Patient does none of the effort to complete the activity. Or, the assistance of 2 or more helpers is required for the patient to complete the activity. If activity was not attempted, code reason: 7-Patient Refused. 9-Not Applicable-not attempted and the patient did not perform the activity before the current illness, exacerbation or injury. 10-Not Attempted due to Environmental Limitations-(lack of equipment, weather restraints, etc.). 88-Not Attempted due to Medical Conditions or Safety Concerns. Self Care: Independent Functional Cognition: Independent Drive Self: Yes OT Current Status Subjective Agreeable to OT Mental Status/Objective Patient Orientation: Situation Attachments: IV (port only), Polar Pack, Other-See Comments (DANNA wrap ) Current Glasses/Contacts: Yes Upper Extremity ROM BUE ROM WFLS, Upper Extremity Strength _4/5 BUE grossly ADL-Treatment ADL-Current excessive girth and limited knee flexion prevents independent LE ADLS Eating (QC): 6 Oral Hygiene (QC): 6 Shower/Bathe Self (QC): 4 Upper Body Dressing (QC): 6 Lower Body Dressing (QC): 3 On/Off Footwear (QC): 3 Toileting Hygiene (QC): 5 Education OT Patient Education: Exercise program, Modified ADL techniques, Progress toward Goal/Update tx plan, Purpose of tx/functional activities, Reviewed precautions, Rehab process, Safety issues, Transfer techniques, Use of adapted equipment Teaching Recipient: Patient, Family Response to Teaching: Verbalize Understanding OT Medical Case Manager Goals Medical Case Manager Goals Toileting Hygiene (QC): 6 Shower/Bathe Self (QC): 5 Upper Body Dressing (QC): 6 Lower Body Dressing (QC): 6 On/Off Footwear (QC): 6 1=Demonstrate adherence to instructed precautions during ADL tasks. 2=Patient will verbalize/demonstrate understanding of assistive devices/mod ifications for ADL. 3=Patient will improve strength/tolerance for activity to enable patient to perform ADL's. OT Education/Plan Problem List/Assessment Assessment: Decreased Activ Tolerance, Impaired Coordination, Impaired Funct Balance, Impaired Self-Care Skills Discharge Recommendations Plan/Recommendations: Continue POC Therapy Discharge Recommendati: Home & Family Equpiment Recommendations-D/C: Mat Making Machine Tender, Sock Aide Treatment Plan/Plan of Care Treatment,Training & Education: Yes Patient would benefit from OT for education, treatment and training to promote independence in ADL's, mobility, safety and/or upper extremity function for ADL's. Plan of Care: ADL Retraining, Functional Mobility, Group Exercise/Act as Ind Treatment Duration: Dec 12, 2022 Frequency: 3 times per week (3-5 times per week) Estimated Hrs Per Day: .25 hour per day Rehab Potential: Good OT applied polar pack w/ LE elevated in recliner, all need met Time Start Time: 09:55 Stop Time: 10:21 DATE: Dec 09, 2022 Total Time Billed (hr/min): 26 Billed Treatment Time LINDA GUTIERREZ, 26 min TOM LOZOYA OT Dec 09, 2022 11:36
[2022-12-09 11:59] VITALS: BP 135/62
[2022-12-09 12:59] VITALS: BP 135/62
== END 2022-12-09 13:20 | disposition home or self-care (01) ==
LOC: SDC 06:02 → EDSTATUS 07:30 → 4TH 10:47 → SDC 12-09 13:20
PROVIDERS: ATTEND Orthopaedic Surgery
DX: M17.12 Unilateral primary osteoarthritis, left knee (principal); J45.909 Unspecified asthma, uncomplicated; E03.9 Hypothyroidism, unspecified; I10 Essential (primary) hypertension; E78.5 Hyperlipidemia, unspecified; G47.00 Insomnia, unspecified; K21.9 Gastro-esophageal reflux disease without esophagitis; Z79.899 Other long term (current) drug therapy; Z79.890 Hormone replacement therapy
CPT/HCPCS: 27447; 73560; 80053 ×2; 85025 ×2; 87081; 94640; 97110 ×2; 97116 ×3; 97162; 97166; 97535; C1713 ×2; C1776 ×3; 36415

== ENCOUNTER → 2023-01-18 | Outpatient (CLI) | payer BC, OTHER ==
[~2023-01-18] MED LIST changes: +ASPI-1238 PO; +CYCL10TA25 PO; +OXC5T PO
--- NOTE | 2023-01-18 17:02 | Diagnostic Imaging Report ---
INDICATION: PAIN IN LEFT KNEE TECHNIQUE: 2 views of the left knee CORRELATION STUDY: 12/07/2022 FINDINGS: Knee arthroplasty hardware is intact and unremarkable. There is no acute bony hematocrit. Mild amount of soft tissue edema. The previous study demonstrated soft tissue gas has resolved. IMPRESSION: 1. Negative for acute bony abnormality of the knee. Dictated by: Dictated on workstation # [id number]
== END ==
LOC: RAD FS 13:08
PROVIDERS: ATTEND Orthopaedic Surgery
DX: M25.562 Pain in left knee (principal)
CPT/HCPCS: 73560